=== PATIENT | female | born 1980 | race Caucasian/White ===

== ENCOUNTER 2018-01-05 05:11 | Emergency (ER) | payer OTHER, MEDICAID ==
[~2018-01-05] VITALS: Ht 167.6 cm; Wt 65.8 kg
[~2018-01-05 05:11] MED LIST: BENZTROPINE MESY2 MG PO; INVEGA SUS156 MG/1 M IM; ORTHO-NOVUM1 EAC1 PO
[2018-01-05 06:22] LABS: ABSOLUTE BASOPHILS 0.1 thou/uL (0.0-0.2); ABSOLUTE EOSINOPHILS 0.2 thou/uL (0.0-0.7); ABSOLUTE LYMPHOCYTES 2.3 thou/uL (0.8-5.3); ABSOLUTE MONOCYTES 0.7 thou/uL (0.0-1.2); ABSOLUTE NEUTROPHILS 8.3 thou/uL (1.6-8.1); BASOPHILS 0.6 %; EOSINOPHILS 1.4 %; HEMATOCRIT 36.9 % (37.0-47.0); HEMOGLOBIN 12.4 gm/dL (12.0-15.0); LYMPHOCYTES 19.6 %; MCH 30.9 pg (26.0-34.0); MCHC 33.5 g/dL (28.0-37.0); MCV 92.2 fL (80.0-100.0); MONOCYTES 6.4 %; MPV 7.3 fl. (7.2-11.1); NUCLEATED RBCS 0 /100WBC; PLATELET COUNT* 370 thou/uL (150-400); RBC 4.01 mil/uL (4.20-5.00); RDW-CV 12.3 % (10.5-14.5); WBC 11.5 thou/uL (4.0-11.0)
[2018-01-05 06:26] LABS: URINE BILIRUBIN NEGATIVE (Negative); URINE BLOOD 1+ (Negative); URINE CLARITY CLEAR; URINE COLOR YELLOW; URINE GLUCOSE-RANDOM NEGATIVE (Negative); URINE KETONES NEGATIVE (Negative); URINE LEUKOCYTES-REFLEX 1+ (Negative); URINE NITRITE-REFLEX NEGATIVE (Negative); URINE PROTEIN NEGATIVE (Negative); URINE UROBILINOGEN 0.2 E.U./dl (0.2-1.0)
[2018-01-05 06:30] LABS: ALBUMIN 3.7 g/dL (3.4-5.0); CALCIUM 9.1 mg/dL (8.5-10.1); CREATININE 0.9 mg/dL (0.6-1.3); SALICYLATE < 2.8 mg/dL (2.8-20.0); TOTAL BILIRUBIN 0.3 mg/dL (<0.1-1.0); TOTAL PROTEIN 7.6 g/dL (6.4-8.2)
[2018-01-05 06:33] LABS: AMP/METHAMP POSITIVE (Negative); BARBITURATES Negative (Negative); BENZODIAZEPINES Negative (Negative); COCAINE Negative (Negative); METHADONE Negative (Negative); OPIATES Negative (Negative); PCP Negative (Negative); THC Negative (Negative)
[2018-01-05 06:33] LABS: POTASSIUM 2.9 mmol/L (3.5-5.1)
[2018-01-05 06:34] LABS: ACETAMINOPHEN < 2 ug/mL (10-30); ALCOHOL < 10 mg/dL (<10)
[2018-01-05 06:36] LABS: SQUAMOUS 4-10 Moderate /LPF (0-3)
[2018-01-05 06:37] LABS: BACTERIA-REFLEX 1-9 Few /HPF (None Seen); CASTS None Seen /LPF (None Seen); CRYSTALS None Seen /LPF (None Seen); MUCUS None Seen strn/LPF (None Seen); URINE RBC 3-10 Few /HPF (0-2); URINE WBC-REFLEX 0-5 Rare /HPF (0-5)
[2018-01-05 19:29] LABS: CALCIUM 8.8 mg/dL (8.5-10.1); CREATININE 0.8 mg/dL (0.6-1.3)
[2018-01-06 17:50] VITALS: BP 104/68
== END 2018-01-06 17:50 ==
LOC: M.ERS 05:11
PROVIDERS: Emergency Medicine
DX: F29 Unspecified psychosis not due to a substance or known physiological condition (principal); F20.0 Paranoid schizophrenia; Z90.710 Acquired absence of both cervix and uterus

== ENCOUNTER 2018-06-24 11:11 | Emergency (ER) | payer OTHER, MEDICAID ==
[~2018-06-24] VITALS: Ht 167.6 cm; Wt 65.8 kg
[2018-06-24 11:56] LABS: HEMOGLOBIN 13.5 gm/dL (12.0-15.0); MCH 31.5 pg (26.0-34.0); MCHC 34.6 g/dL (28.0-37.0); MCV 91.3 fL (80.0-100.0); MPV 6.9 fl. (7.2-11.1); RBC 4.27 mil/uL (4.20-5.00); RDW-CV 12.7 % (10.5-14.5); WBC 10.8 thou/uL (4.0-11.0)
[2018-06-24 12:06] LABS: CALCIUM 9.4 mg/dL (8.5-10.1)
[2018-06-24 12:11] LABS: ALBUMIN 4.3 g/dL (3.4-5.0); SALICYLATE < 2.8 mg/dL (2.8-20.0); TOTAL BILIRUBIN 0.5 mg/dL (<0.1-1.0)
[2018-06-24 12:13] LABS: ACETAMINOPHEN < 2 ug/mL (10-30); ALCOHOL < 10 mg/dL (<10)
[2018-06-24 13:08] LABS: URINE BILIRUBIN NEGATIVE (Negative); URINE BLOOD 1+ (Negative); URINE CLARITY CLEAR; URINE COLOR YELLOW; URINE GLUCOSE-RANDOM NEGATIVE (Negative); URINE KETONES 2+ (Negative); URINE LEUKOCYTES TRACE (Negative); URINE NITRITE NEGATIVE (Negative); URINE PROTEIN NEGATIVE (Negative); URINE SPECIFIC GRAVITY 1.025 (1.005-1.030); URINE UROBILINOGEN 0.2 E.U./dl (0.2-1.0)
[2018-06-24 13:15] LABS: AMP/METHAMP POSITIVE (Negative); BARBITURATES Negative (Negative); BENZODIAZEPINES Negative (Negative); COCAINE Negative (Negative); METHADONE Negative (Negative); OPIATES Negative (Negative); PCP Negative (Negative); THC Negative (Negative)
[2018-06-24 13:16] LABS: BACTERIA 1-9 Few /HPF (None Seen); CRYSTALS None Seen /LPF (None Seen); HYALINE CASTS 0-3 Few /LPF (None Seen); MUCUS >6 Heavy strn/LPF (None Seen); SQUAMOUS 0-3 Few /LPF (0-3); URINE RBC 0-2 Rare /HPF (0-2); URINE WBC 0-5 Rare /HPF (0-5)
[2018-06-24 14:46] LABS: NT-PRO BRAIN NAT PEPTIDE 51 pg/mL (<300); TROPONIN-I LEVEL <0.06 ng/mL (<0.06)
[2018-06-24 17:59] VITALS: BP 135/87
--- NOTE | 2018-06-25 10:52 | EKG ---
[place] [address] ELECTROCARDIOGRAM REPORT Name: GISSEL FOURNIER Room: [facility]#: [id number] Admission: 06/24/18 Attend Phys: Discharge: 06/24/18 Date of : 76 Report #: [id number] THIS REPORT FOR: //name// [facility] ED Test Date: 2018-06-24 Test Time: 14:32:54 Pat Name: GISSEL FOURNIER Department: Room: Gender: F [employer] Estate Paralegal: FABIANA : 1980 Requested By: Sharmaine Parrish Order Number: [id number] MD: Troy Moreno Measurements Intervals [place] Rate: 101 P: 74 SD: 100 QRS: 43 QRSD: 93 T: 20 QT: 345 QTc: 448 Interpretive Statements Sinus tachycardia Probable left atrial enlargement Nonspecific T abnormalities, anterior leads Baseline wander in lead(s) V2 No previous ECG available for comparison Electronically Signed On 06-25-2018 10:51:49 [employer] by Troy Moreno [email or web address] <ELECTRONICALLY SIGNED> By: Troy Moreno MD, [facility] 06/25/18 1051 1432 1432 Troy Moreno MD, [facility] /EPI
== END 2018-06-24 18:01 ==
LOC: M.ERS 11:11
PROVIDERS: Personal Emergency Response Attendant
DX: F19.10 Other psychoactive substance abuse, uncomplicated (principal); R53.81 Other malaise; F20.0 Paranoid schizophrenia; Z90.710 Acquired absence of both cervix and uterus